=== PATIENT | male | born 2000 | race Caucasian/White ===

== ENCOUNTER 2023-11-14 00:28 | Inpatient (IN) | payer OTHER ==
[2023-11-14 01:44] LABS: Amphetamine Screen,Urine Not Detected (NotDetected); Barbiturate Screen,Urine Not Detected (NotDetected); Benzodiazepines Screen,Urine Not Detected (NotDetected); Cocaine Screen,Urine Not Detected (NotDetected); Methadone Screen, Urine Not Detected (NotDetected); Opiate Screen,Urine Not Detected (NotDetected); Oxycodone Screen, Urine Not Detected (NotDetected); Phencyclidine Screen,Urine Not Detected (NotDetected); Tricyclic Antidepressant,Urine Not Detected (NotDetected); Urn Cannabinoid Scrn Detected (NotDetected)
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
[2023-11-14] MEDS ORDERED: MAGNESIUM HYDROXIDE 2,400 MG/30 ML CUP PO PRN (14:13)
[2023-11-14] MEDS ORDERED: MAG HYDROX/AL HYDROX/SIMETH 355 ML BOTTLE PO PRN (14:13)
[2023-11-14] MEDS ORDERED: ACETAMINOPHEN TAB 325 MG TAB PO PRN (14:13)
[2023-11-14] MEDS ORDERED: LORazepam 1 MG TAB PO PRN (14:15)
[2023-11-14] MEDS ORDERED: HALOPERIDOL LACTATE 5 MG/ML 1 ML VIAL IM PRN (14:15)
[2023-11-14] MEDS ORDERED: haloperidoL 5 MG TAB PO PRN (14:15)
[2023-11-14] MEDS ORDERED: LORazepam 2 MG/ML INJ IM PRN (14:15)
[2023-11-14] MEDS ORDERED: BACITRACIN OINT 1 EACH PACKET TOPICAL PRN (14:58)
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
--- NOTE | 2023-11-15 04:44 | P.CONS ---
History of Present Illness - Reason for Consult Consult date: 11/15/23 - History of Present Illness The patient is a 22-year-old male with no known PMH but presented to the emergency room with complaints of " not being in the right mental space". the patient was admitted to the mental health unit where he was seen and evaluated. He reports struggling with his mental health due to his childhood. He did not wish to delve into any further details. He denied any physical complaints at the time of interview. Denied experiencing chest discomfort, shortness of breath, fever, chills, cough, nausea, vomiting, abdominal pain, diarrhea. He denies tobacco, or alcohol use. Does report recreational marijuana use. Review of systems: Pertinent positives and negatives as discussed in HPI, a complete review of systems was performed and all other systems are negative. Physical examination: General: non toxic, no distress, appears at stated age, normal weight Derm: no unusual rashes/lesions, no unusual ecchymoses, warm, dry Head: atraumatic, normocephalic, symmetric Eyes: EOMI, no lid lag, anicteric sclera ENT: Nose and ears atraumatic, no thrush, no pharyngeal erythema Neck: trachea midline, supple Mouth: no lip lesion, mucus membranes moist Cardiovascular: S1S2 reg, no murmur, no edema Lungs: CTA bilateral, no rhonchi, no rales , no accessory muscle use Abdominal: soft, nontender to palpation, no guarding Ext: no gross muscle atrophy, no contractures, Neuro: No gross focal neuro deficits noted Psych: Alert, oriented, appropriate affect Assessment: Marijuana abuse Depression Imaging: None performed Data Review: Urine toxicology positive for marijuana Plan: Advised on the importance of cessation from marijuana use Defer management of depression to the primary psychiatry service Thank you for allowing us to participate in the care of this patient. We will follow peripherally. Do not hesitate to contact us with questions. Someone can be reached from the [facility] hospitalist group at all hours of the day at [phone]. Past Medical History Past Medical History: No Reported History History of Any Multi-Drug Resistant Organisms: None Reported Past Surgical History: No Surgical Hx Reported Past Psychological History: No Psychological Hx Reported Smoking Status: Unknown if ever smoked Past Alcohol Use History: Occasional Past Drug Use History: None Reported - Past Family History Father Family Medical History: Hyperlipidemia Medications and Allergies Home Medications Medication Instructions Recorded Confirmed Type No Known Home Medications 11/14/23 11/14/23 History Allergies Allergy/AdvReac Type Severity Reaction Status Date / Time hydrocodone AdvReac Muscle Verified 11/14/23 09:07 issues Physical Exam Vitals: Vital Signs Temp Pulse Pulse Resp BP BP Pulse Ox 11/14/23 14:31 97.7 F 82 16 125/73 100 11/14/23 14:30 74 12 120/81 99 Intake and Output 11/14/23 11/14/23 11/15/23 14:59 22:59 06:59 Other: Weight 63.531 kg
[2023-11-15 08:53] LABS: Basophils % (A) 1 %; Eosinophils # (A) 0.1 k/uL (0-0.7); Eosinophils % (A) 2 %; HCT 48.4 % (39.0-53.0); HGB 15.9 gm/dL (13.0-17.5); Lymphocytes # (A) 1.9 k/uL (1.0-4.8); Lymphocytes % (A) 30 %; MCH 28.8 pg (25.0-35.0); MCHC 32.9 g/dL (31.0-37.0); MCV 87.5 fL (80.0-100.0); Mean Platelet Volume 7.8; Monocytes # (A) 0.4 k/uL (0-1.0); Monocytes % (A) 6 %; Neutrophils # (A) 3.7 k/uL (1.3-7.7); Neutrophils % (A) 59 %; Platelet Count 259 k/uL (150-450); RBC 5.53 m/uL (4.30-5.90); WBC 6.2 k/uL (3.8-10.6)
[2023-11-15 09:16] LABS: ALT 26 U/L (4-49); AST 31 U/L (17-59); African American GFR (CKD) >90 (>60 ml/min/1.73 sqM); Albumin 4.5 g/dL (3.5-5.0); Alkaline Phosphatase 73 U/L (38-126); Anion Gap 7 mmol/L; Blood Urea Nitrogen 22 mg/dL (9-20); Calcium 9.8 mg/dL (8.4-10.2); Carbon Dioxide 28 mmol/L (22-30); Chloride 104 mmol/L (98-107); Glucose 94 mg/dL (74-99); Non-African American GFR(CKD) >90 (>60 ml/min/1.73 sqM); Sodium 139 mmol/L (137-145); Total Bilirubin 0.9 mg/dL (0.2-1.3)
[2023-11-15] MEDS: NICOTINE 14MG/24HR PATCH TRANSDERM SCH (09:46)
[2023-11-15] MEDS ORDERED: traZODone HCL 50 MG TAB PO PRN (12:07)
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
[2023-11-15] MEDS: SERTRALINE 25 MG TAB PO SCH (12:24)
--- NOTE | 2023-11-16 12:54 | P.PN ---
Progress Note - Text Progress Note Date: 11/16/23 Interval History: Patient was seen in group room and was directable and agreeable to speak with loan underwriter. Discussed the events leading to hospitalization in more detail today. He described that he became very angry and was unable to control his temper. He believes that a factor contributing to it was him working too much. He reports having become very upset at seeing the messages dog had made, reports becoming angry at the dog, and then becoming angry at his sister and stepfather for trying to interfere. He does not feel that he had insight into how angry he was becoming. He reports that he has been feeling depressed and anxious on the inside and has not been sharing it with anybody. He reports having tried therapy when he was a child and is willing to try again in the future. He was encouraged to pursue therapy. Also discussed stop technique with him today and provided the handout. he states that his sister came to visit during visiting hours and that she has forgiven him. He reports that his mood today is "alright ". He rates depression 2-3 out of 10. Patient reports having access to guns but says they are locked away at home. At this time patient denies any suicidal or homicidal ideations, intent or plan. Patient denies any auditory, visual hallucinations and denies any paranoia or delusions. Patient denies any side effects from the medications and has been compliant with meds. He was agreeable to start medications today. Mental Status Exam: General Appearance: Patient appears to be stated age is alert, directable, and cooperative. Patient appears to have fair hygiene and grooming Behavior: Patient is calmly seated without any agitated behavior. poor eye c ontact, withdrawn Speech: Patient's speech is fluent and nonpressured. Mood/Affect: Mood is improving mildly, affect is congruent and constricted. Suicidality/Homicidality: Patient denies having any suicidal or homicidal ideation intent or plan. Perceptions: Patient denies any visual hallucinations and denies any auditory hallucinations. Though content/process: There is no evidence of any delusional thought content and thought process is linear and goal-directed. Memory and concentration: AOX3, grossly intact for the purposes of this session Judgment and insight:impulsive Assessment adjustment disorder with the disturbance of affect and conduct Depressive disorder, unspecified cannabis use disorder nicotine dependance interpersonal family issues and conflicts Plan: -Patient continues to meet criteria for inpatient psychiatric admission for symptom stabilization and safety. Patient has signed adult voluntary form and medication consent and was placed in patient's chart. -Discussed STOPP technique -Medications: Zoloft 25mg qd for mood/anxiety, increase to 50mg Saturday. trazodone 50mg qhs prn for sleep/mood -When necessary Ativan and Haldol for agitation/aggression. -NRT - nicotine patch -SW on board for discharge planning. Encouraged the patient to participate in milieu. SW to assist coordination with family with safekeeping guns/firearms PRIOR to discharge.
[2023-11-17] MEDS: SERTRALINE 50 MG TAB PO SCH (08:32)
--- NOTE | 2023-11-17 11:42 | P.PN ---
Progress Note - Text Progress Note Date: 11/17/23 Interval History: Patient was seen in group room and was directable and agreeable to speak with sports writer. Patient says that his mood has been "okay ". He says he has not been feeling upset or agitated in the past 24 hours. He reports reading the stop technique paperwork that was given to him yesterday. He was encouraged to practice this technique during hospitalization. He reports sleeping well. He endorses fair appetite and says that generally he eats one to 2 meals at home and has been eating all the scheduled meals in the hospital. He says he does wrestling and was encouraged to do physical activity as a method of relieving energy and for mental health. He was agreeable with Zoloft being at the current dose today and discussed with him that it might be changed in the future as well if needed with outpatient provider. Encouraged compliance with medication. Patient has not taken any when necessary medications. At this time patient denies any suicidal or homicidal ideations, intent or plan. Patient denies any auditory, visual hallucinations and denies any paranoia or delusions. Patient denies any side effects from the medications and has been compliant with meds. Mental Status Exam: General Appearance: Patient appears to be stated age is alert, directable, and cooperative. Patient appears to have fair hygiene and grooming Behavior: Patient is calmly seated without any agitated behavior. fair eye contact Speech: Patient's speech is fluent and nonpressured. Mood/Affect: Mood is improving mildly, affect is congruent and constricted. Suicidality/Homicidality: Patient denies having any suicidal or homicidal ideation intent or plan. Perceptions: Patient denies any visual hallucinations and denies any auditory hallucinations. Though content/process: There is no evidence of any delusional thought content and thought process is linear and goal-directed. Memory and concentration: AOX3, grossly intact for the purposes of this session Judgment and insight:impulsive Assessment adjustment disorder with the disturbance of affect and conduct Depressive disorder, unspecified cannabis use disorder nicotine dependance interpersonal family issues and conflicts Plan: -Patient continues to meet criteria for inpatient psychiatric admission for symptom stabilization and safety. Patient has signed adult voluntary form and medication consent and was placed in patient's chart. -Discussed STOPP technique -Medications: Zoloft 50mg daily. trazodone 50mg qhs prn for sleep/mood -When necessary Ativan and Haldol for agitation/aggression. -NRT - nicotine patch -SW on board for discharge planning. Encouraged the patient to participate in milieu. SW - please assist coordination with family with safekeeping GUNS/firearms PRIOR to discharge.
[2023-11-18 06:57] VITALS: RESP 16
[2023-11-18] MEDS ORDERED: hydrOXYzine pamoate 25 MG CAP PO PRN (11:21)
--- NOTE | 2023-11-18 11:32 | P.PN ---
Progress Note - Text Progress Note Date: 11/18/23 Interval History: Patient was seen in group and was directable and agreeable to speak with commercial insurance underwriter in the office. Patient states his weekend went well, and he is feeling a little better. Patient states that he feels that his heart is racing a little bit, and he is feeling a little panicky. Spare Hand reviewed vitals, vitals within normal limits. Patient states he is mildly anxious. Patient states that he is eating and sleeping well. Patient states his sister came and visited over the weekend, and that he has spoke with his mother, and he may be able to return home upon discharge, but it is still unknown. Continues to endorse some depression at this time, was agreeable to have his Zoloft increased. Continues to have fairly poor eye contact. At this time patient denies any suicidal or homicidal ideations, intent or plan. Patient denies any auditory, visual hallucinations and denies any paranoia or delusions. Patient denies any side effects from the medications and has been compliant with meds. He was agreeable to start medications today. Mental Status Exam: General Appearance: Patient appears to be stated age is alert, directable, and cooperative. Patient appears to have fair hygiene and grooming Behavior: Patient is calmly seated without any agitated behavior. poor eye contact, withdrawn Speech: Patient's speech is fluent and nonpressured. Mood/Affect: Mood is improving mildly, affect is congruent and constricted. Suicidality/Homicidality: Patient denies having any suicidal or homicidal ideation intent or plan. Perceptions: Patient denies any visual hallucinations and denies any auditory hallucinations. Guarded Though content/process: There is no evidence of any delusional thought content and thought process is linear and goal-directed. [place] Memory and concentration: AOX3, grossly intact for the purposes of this session Judgment and insight: Improving mildly Assessment adjustment disorder with the disturbance of affect and conduct mood disorder unspecified cannabis use disorder nicotine dependance interpersonal family issues and conflicts Plan: -Patient continues to meet criteria for inpatient psychiatric admission for symptom stabilization and safety. Patient has signed adult voluntary form and medication consent and was placed in patient's chart. -Medications: increase Zoloft 75mg qd for mood/anxiety, trazodone 50mg qhs prn for sleep/mood, add visteral 25mg PO prn for anxiety -When necessary Ativan and Haldol for agitation/aggression. -NRT - nicotine patch -SW on board for discharge planning. Encouraged the patient to participate in milieu. Possible discharge Saturday, if patient continues to improve. mat worker to contact patient's mother to help coordinate patient's discharge planning.
[2023-11-18] MEDS: SERTRALINE 25 MG TAB PO STA (11:47)
[2023-11-19] MEDS: SERTRALINE 25 MG TAB PO SCH (08:16)
--- NOTE | 2023-11-19 11:03 | P.PN ---
Progress Note - Text Progress Note Date: 11/19/23 Interval History: Patient was seen in group and was directable and agreeable to speak with television script writer in the office. Patient states he is feeling all right. He states he feels the medications are starting to work. He claims his anxiety is improved. Patient states that he is eating and sleeping well. Patient is attending groups. Patient states he spoke with his mother last night, and states he still does not know if he is welcome back home. Continues to have fairly poor eye contact, but this is mildly improving. At this time patient denies any suicidal or homicidal ideations, intent or plan. Patient denies any auditory, visual hallucinations and denies any paranoia or delusions. Patient denies any side effects from the medications and has been compliant with meds. Mental Status Exam: General Appearance: Patient appears to be stated age is alert, directable, and cooperative. Patient appears to have fair hygiene and grooming Behavior: Patient is calmly seated without any agitated behavior. poor eye contact, improving Speech: Patient's speech is fluent and nonpressured. Mood/Affect: Mood is improving mildly, affect is congruent and constricted. Suicidality/Homicidality: Patient denies having any suicidal or homicidal ideation intent or plan. Perceptions: Patient denies any visual hallucinations and denies any auditory hallucinations. Guarded, mildly improving Though content/process: There is no evidence of any delusional thought content and thought process is linear and goal-directed. Memory and concentration: AOX3, grossly intact for the purposes of this session Judgment and insight: Improving mildly Assessment adjustment disorder with the disturbance of affect and conduct mood disorder unspecified cannabis use disorder nicotine dependance interpersonal family issues and conflicts Plan: -Patient continues to meet criteria for inpatient psychiatric admission for symptom stabilization and safety. Patient has signed adult voluntary form and medication consent and was placed in patient's chart. -Medications: increase Zoloft 100mg qd for mood/anxiety, trazodone 50mg qhs prn for sleep/mood, visteral 25mg PO prn for anxiety -When necessary Ativan and Haldol for agitation/aggression. -NRT - nicotine patch -SW on board for discharge planning. Encouraged the patient to participate in milieu. Possible discharge Saturday, if patient continues to improve. table worker packager to contact patient's mother to help coordinate patient's discharge planning.
[2023-11-20 07:16] VITALS: BP 118/60; PULSE 83; TEMP 97.9
[2023-11-20] MEDS: SERTRALINE 100 MG TAB PO SCH (08:20)
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
== END 2023-11-20 14:11 | disposition home or self-care (01) | DRG 882 ==
LOC: EC 00:28 → 3MHU 14:11
PROVIDERS: ADMIT Psychiatry & Neurology Psychiatry; ATTEND Psychiatry & Neurology Psychiatry
DX: F43.25 Adjustment disorder with mixed disturbance of emotions and conduct (principal); R45.851 Suicidal ideations; F32.A Depression, unspecified; F12.10 Cannabis abuse, uncomplicated; Z11.52 Encounter for screening for COVID-19; F41.9 Anxiety disorder, unspecified; Z28.310 Unvaccinated for COVID-19; Z71.51 Drug abuse counseling and surveillance of drug abuser; Y04.0XXA Assault by unarmed brawl or fight, initial encounter; Z88.5 Allergy status to narcotic agent
CPT/HCPCS: 80053; 80306; 82075; 83036; 84443; 85025; 87636; 99291

== ENCOUNTER 2024-02-10 01:24 | Inpatient (IN) | payer OTHER ==
--- NOTE | 2024-02-10 01:58 | ED ---
General Adult HPI - General Source: patient, RN notes reviewed <Darren Cao - Last Filed: 02/10/24 02:00> - General Source: RN notes reviewed, old records reviewed - History of Present Illness -: days(s) Radiation: non-radiation Severity scale (1-10): 4 Consistency: constant Improves with: none Worsens with: none Associated Symptoms: denies other symptoms Treatments Prior to Arrival: none <[facility] - Last Filed: 02/21/24 22:24> - General Stated complaint: Mental health Time Seen by Provider: 02/10/24 01:52 - History of Present Illness Initial comments: Quicknote 23-year-old male presenting to the ED with chief complaint of suicidal ideation. Denies homicidal ideation. Reports no current plan, just notes thoughts of suicide. Denies chest pain, shortness of breath, fever, chills, abdominal pain, nausea, changes in bowel or bladder habits. (Darren Cao) This is a 23-year-old male to the ER for evaluation of suicidal thoughts with significant persistent recurrent suicidal thoughts and suicidal ideation no recent drugs or alcohol with marijuana ([facility]) - Related Data Previous Rx's Medication Instructions Recorded Sertraline [Zoloft] 150 mg PO DAILY 30 Days #90 tab 02/14/24 Allergies Allergy/AdvReac Type Severity Reaction Status Date / Time hydrocodone AdvReac Muscle Verified 02/10/24 10:16 issues Review of Systems ROS Other: All systems not noted in ROS Statement are negative. <Darren Cao - Last Filed: 02/10/24 02:00> ROS Other: All systems not noted in ROS Statement are negative. <[facility] - Last Filed: 02/21/24 22:24> ROS Statement: Those systems with pertinent positive or pertinent negative responses have been documented in the HPI. Past Medical History Past Medical History: No Reported History History of Any Multi-Drug Resistant Organisms: None Reported Past Surgical History: No Surgical Hx Reported Past Psychological History: No Psychological Hx Reported Smoking Status: Unknown if ever smoked Past Alcohol Use History: Occasional Past Drug Use History: None Reported - Past Family History Father Family Medical History: Hyperlipidemia <Darren Cao - Last Filed: 02/10/24 02:00> General Exam <KileyDarren - Last Filed: 02/10/24 02:00> General appearance: alert, in no apparent distress Head exam: Present: atraumatic, normocephalic, normal inspection Eye exam: Present: normal appearance, PERRL, EOMI. Absent: scleral icterus, conjunctival injection, periorbital swelling ENT exam: Present: normal exam, mucous membranes moist Neck exam: Present: normal inspection. Absent: tenderness, meningismus, lymphadenopathy Respiratory exam: Present: normal lung sounds bilaterally. Absent: respiratory distress, wheezes, rales, rhonchi, stridor Cardiovascular Exam: Present: regular rate, normal rhythm, normal heart sounds. Absent: systolic murmur, diastolic murmur, rubs, gallop, clicks GI/Abdominal exam: Present: soft, normal bowel sounds. Absent: distended, tende rness, guarding, rebound, rigid Extremities exam: Present: normal inspection, full ROM, normal capillary refill. Absent: tenderness, pedal edema, joint swelling, calf tenderness Back exam: Present: normal inspection Neurological exam: Present: alert, oriented X3, CN II-XII intact Psychiatric exam: Present: normal affect, normal mood Skin exam: Present: warm, dry, intact, normal color. Absent: rash <[facility] - Last Filed: 02/21/24 22:24> - General Exam Comments Initial Comments: Visual Physical Exam Vital signs reviewed General: Well-appearing, nontoxic, no acute distress. Head: Normocephalic, atraumatic Eyes: PERRLA, EOMI ENT: Airway patent Chest: Nonlabored breathing Skin: No visual rash, normal skin tone Neuro: Alert and oriented 3 Musculoskeletal: No gross abnormalities (Darren Cao) Course <[facility] - Last Filed: 02/21/24 22:24> Vital Signs 02/10/24 02/10/24 02:26 12:47 Temperature 98.0 F 98.1 F Pulse Rate 76 71 Respiratory 18 16 Rate Blood Pressure 117/69 146/65 O2 Sat by Pulse 100 96 Oximetry - Reevaluation(s) Reevaluation #1: 02/10/24 04:48 Records are reviewed ([facility]) Reevaluation #2: 02/10/24 04:48 Medically cleared for psychiatric evaluation ([facility]) Reevaluation #3: Was pt. sent in by a medical professional or institution (RISSA Stone, SYSTEM ADMINISTRATION MANAGER, urgent care, hospital, or custodial...) When possible be specific @ -no Did you speak to anyone other than the patient for history (EMS, parent, family, police, friend...)? What history was obtained from this source @ -no Did you review nursing and triage notes (agree or disagree)? Why? @ -agree Are old charts reviewed (outside hosp., previous admission, EMS record, old EKG, old radiological studies, urgent care reports/EKG's, custodial records)? Report findings @ -yes Differential Diagnosis (chest pain, altered mental status, abdominal pain women, abdominal pain men, vaginal bleeding, weakness, fever, dyspnea, syncope, headache, dizziness, GI bleed, back pain, seizure, CVA, palpatations, mental health, musculoskeletal)? @ -prior EKG interpreted by me (3pts min.). @ -no X-rays interpreted by me (1pt min.). @ -no CT interpreted by me (1pt min.). @ -no U/S interpreted by me (1pt. min.). @ -no What testing was considered but not performed or refused? (CT, X-rays, U/S, labs)? Why? @ -none What meds were considered but not given or refused? Why? @ -none Did you discuss the management of the patient with other professionals (professionals i.e. RISSA Stone, SYSTEM ADMINISTRATION MANAGER, lab, RT, psych nurse, social media campaign manager, aegis console operator track, teacher, nursing officer, rn case management)? Give summary @ -no Was smoking cessation discussed for >3mins.? @ -no Was critical care preformed (if so, how long)? @ -no Were there social determinants of health that impacted care today? How? (Homelessness, low income, unemployed, alcoholism, drug addiction, transportation, low edu. Level, literacy, decrease access to med. care, snf, rehab)? @ -none Was there de-escalation of care discussed even if they declined (Discuss DNR or withdrawal of care, Hospice)? DNR status @ -no What co-morbidities impacted this encounter? (DM, HTN, Smoking, COPD, CAD, Cancer, CVA, ARF, Chemo, Hep., AIDS, mental health diagnosis, sleep apnea, morbid obesity)? @ -none Was patient admitted / discharged? Hospital course, mention meds given and route, prescriptions, significant lab abnormalities, going to OR and other pertinent info. @ - 23 male be admitted for mental health evaluation and treatment Admitted Undiagnosed new problem with uncertain prognosis? @ -no Drug Therapy requiring intensive monitoring for toxicity (Heparin, Nitro, Insulin, Cardizem)? @ -no Were any procedures done? @ -no Diagnosis/symptom? @ -Mental health mood disorder Acute, or Chronic, or Acute on Chronic? @ -Acute Uncomplicated (without systemic symptoms) or Complicated (systemic symptoms)? @ -Complicated Side effects of treatment? @ -no Exacerbation, Progression, or Severe Exacerbation? @ -exacerbation Poses a threat to life or bodily function? How? (Chest pain, [place], [place], pneumonia, PE, COPD, DKA, ARF, appy, cholecystitis, CVA, Diverticulitis, Homicidal, Suicidal, threat to staff... and all critical care pts) @ -yes mental health ([facility]) Reevaluation #4: Differential Mental Health Depression, anxiety, bipolar, psychosis, schizophrenia, borderline personality, situational depression, adjustment disorder, behavioral disorder, brain tumor, malingering, substance abuse, encephalopathy, medication reaction, dementia, hypothyroidism, degenerative neurologic disorder, lupus.... This is not meant to be all-inclusive list ([facility]) Medical Decision Making <Darren Cao - Last Filed: 02/10/24 02:00> - Lab Data Result diagrams: 02/11/24 09:15 02/11/24 09:15 <[facility] - Last Filed: 02/21/24 22:24> - Medical Decision Making Quicknote portion performed. Signed Darren Cao PA-C (Darren Cao) 23 male be admitted for mental health evaluation and treatment ([facility]) - Lab Data Lab Results 02/10/24 02/10/24 Range/Units 02:33 12:35 Urine Opiates Screen Not Detected (NotDetected) Ur Oxycodone Screen Not Detected (NotDetected) Urine Methadone Screen Not Detected (NotDetected) Ur Barbiturates Screen Not Detected (NotDetected) U Tricyclic Antidepress Not Detected (NotDetected) Ur Phencyclidine Scrn Not Detected (NotDetected) Ur Amphetamines Screen Not Detected (NotDetected) U Methamphetamines Scrn Not Detected (NotDetected) U Benzodiazepines Scrn Not Detected (NotDetected) Urine Cocaine Screen Not Detected (NotDetected) U Marijuana (THC) Screen Detected H (NotDetected) SARS-CoV-2 (PCR) Not Detected (Not Detectd) Disposition <Darren Cao - Last Filed: 02/10/24 02:00> Is patient prescribed a controlled substance at d/c from ED?: No <[facility] - Last Filed: 02/21/24 22:24> Clinical Impression: Adjustment disorder with mixed disturbance of emotions and conduct, Unspecified episodic mood disorder Disposition: TRANSFER TO PSYCH HOSP/UNIT Condition: Stable
[2024-02-10 03:03] LABS: Amphetamine Screen,Urine Not Detected (NotDetected); Barbiturate Screen,Urine Not Detected (NotDetected); Benzodiazepines Screen,Urine Not Detected (NotDetected); Cocaine Screen,Urine Not Detected (NotDetected); Methadone Screen, Urine Not Detected (NotDetected); Opiate Screen,Urine Not Detected (NotDetected); Oxycodone Screen, Urine Not Detected (NotDetected); Phencyclidine Screen,Urine Not Detected (NotDetected); Tricyclic Antidepressant,Urine Not Detected (NotDetected); Urn Cannabinoid Scrn Detected (NotDetected)
[2024-02-10] MEDS ORDERED: MAG HYDROX/AL HYDROX/SIMETH 355 ML BOTTLE PO PRN (15:01)
[2024-02-10] MEDS ORDERED: ACETAMINOPHEN TAB 325 MG TAB PO PRN (15:01)
[2024-02-10] MEDS ORDERED: LORazepam 1 MG TAB PO PRN (15:01)
[2024-02-10] MEDS ORDERED: IBUPROFEN 600 MG TAB PO PRN (15:01)
[2024-02-10] MEDS ORDERED: HALOPERIDOL LACTATE 5 MG/ML 1 ML VIAL IM PRN (15:01)
[2024-02-10] MEDS ORDERED: haloperidoL 5 MG TAB PO PRN (15:01)
[2024-02-10] MEDS ORDERED: LORazepam 2 MG/ML INJ IM PRN (15:01)
[2024-02-10] MEDS ORDERED: traZODone HCL 50 MG TAB PO PRN (15:01)
[2024-02-10] MEDS ORDERED: MAGNESIUM HYDROXIDE 2,400 MG/30 ML CUP PO PRN (15:01)
--- NOTE | 2024-02-10 16:38 | P.MDCNMH ---
<Tutu Paulson - Last Filed: 02/10/24 16:30> History of Present Illness H&P Date: 02/10/24 History of Presenting Illness: Patient is a 23-year-old male with a past medical history of depression, anxiety, and cannabinoid use. He is currently admitted to mental health unit. He presented to the emergency department with a chief complaint of depression and suicidal ideations. Patient reports he is having a difficult time getting along with his stepfather, states her personalities do not mesh well together. Patient reports this causes him to feel significantly depressed and reports he is having thoughts of killing himself. Patient reports he has thought about taking a knife and just stabbing himself. He reports history of recent hospitalization secondary to same as [place] knifewith the intent to go and end his life. Patient denies nicotine use and reports he only drinks once in a while and denies binge drinking behaviors or daily alcohol use. He is admitted under psychiatry team and we were consulted for medical evaluation and H&P. Patient seen and evaluated on mental health unit. He was initially talking on phone and upon asking to do examination patient was pleasant and cooperative and explained to the person on the phone he was going to get examination and call them back. Patient was ambulatory with a steady gait. He was alert and oriented x 4 denies having any visual, auditory, or tactile hallucinations. Patient does report feeling depressed with active suicidal ideations and a plan. He denies having homicidal ideations. He states he does not want to kill himself because it would hurt his sister and his mother, but also reports he does not know what else to do because he cannot get along with his stepfather. Patient does admit to daily cannabis use but denies any other drug use. Patient denies complaints including headache, lightheadedness, dizziness, chest pain, palpitations, shortness of breath, cough or congestion, nausea, or vomiting. Review of systems: Pertinent positives and negatives as discussed in HPI, a complete review of systems was performed and all other systems are negative. Physical exam: Vital signs reviewed and stable. General: Nontoxic, no distress and appears stated age. Derm: Skin warm and dry, normal coloration for ethnicity. Head: Atraumatic, normocephalic and symmetric. Eyes: EOMs intact, no lid lag, and anicteric sclera Mouth: no lip lesions, mucus membranes moist Cardiovascular: regular rate and rhythm with normal S1S2, no murmur, positive posterior tibial pulses bilaterally, and cap refill < 2 seconds. Lungs: Respirations even, regular, and unlabored on room air. Lungs CTA bilaterally, no rhonchi, no rales, no wheezing, and no accessory muscle usage. Abdominal: soft, nontender to palpation, no guarding, no appreciable organomegaly Ext: ROM intact. No gross muscle atrophy, no edema, no contractures Neuro: Speech clear, face symmetrical and CN II-XII grossly intact with no noted focal neuro deficits Psych: Alert and oriented to person, place, time, and situation. Appropriate and pleasant affect. Assessment and Plan of Care: Cannabinoid use disorder -Recommend cessation of use. Depression Suicidal ideations with a plan -Maintain safe and supportive care, suicide precautions to being placed. -Management per primary admitting psychiatry team. Popeye reviewed: -Urine drug screen positive for marijuana only. -COVID PCR negative. -Vital signs reviewed. Blood pressure 146/65, heart rate 71, respiratory rate 16, temp 98.1 F, and SpO2 of 96% on room air. Thank you for allowing us to participate in the care of this pleasant patient. Do not hesitate to contact us with questions. Someone can be reached from the [facility] hospitalist group all hours of the day at [phone] or via perfect serve. Patient was seen independently by Nurse Practitioner. This document was prepared using [employer] dictation software. Please allow for errors in statistics teacher while rare they do occur. Past Medical History Past Medical History: No Reported History History of Any Multi-Drug Resistant Organisms: None Reported Past Surgical History: No Surgical Hx Reported Past Psychological History: No Psychological Hx Reported Smoking Status: Never smoker Past Alcohol Use History: Occasional Past Drug Use History: Marijuana - Past Family History Father Family Medical History: Hyperlipidemia Medications and Allergies Home Medications Medication Instructions Recorded Confirmed Type Sertraline [Zoloft] 150 mg PO DAILY 02/10/24 02/10/24 History Allergies Allergy/AdvReac Type Severity Reaction Status Date / Time hydrocodone AdvReac Muscle Verified 02/10/24 10:16 issues Physical Exam Vitals: Vital Signs Temp Pulse Resp BP Pulse Ox 02/10/24 12:47 98.1 F 71 16 146/65 96 02/10/24 02:26 98.0 F 76 18 117/69 100 Intake and Output 02/10/24 02/10/24 02/10/24 06:59 14:59 22:59 Other: Weight 65.771 kg Cranial Nerve Examination - Cranial Nerves Cranial Nerve II- Optic: Intact Cranial Nerve III- Oculomotor: Intact Cranial Nerve IV- Trochlear: Intact Cranial Nerve V- Trigeminal: Intact Cranial Nerve - Abducens: Intact Cranial Nerve VII- Facial: Intact Cranial Nerve VIII- Auditory: Intact Cranial Nerve IX- Glossopharyngeal: Intact Cranial Nerve X- Vagus: Intact Cranial Nerve XI- Accessory: Intact Cranial Nerve XII- Hypoglossal: Intact Results Labs: Abnormal Lab Results - Last 24 Hours (Table) 02/10/24 Range/Units 02:33 U Marijuana (THC) Screen Detected H (NotDetected) <Hayden Whitaker - Last Filed: 02/10/24 18:20> History of Present Illness Tutu Paulson NP rendered care for this patient independently, reviewed the findings and plan as documented in the note above. I did not physically speak with or examine the patient on this date. Physical Exam Vitals: Vital Signs Temp Pulse Resp BP Pulse Ox 02/10/24 12:47 98.1 F 71 16 146/65 96 02/10/24 02:26 98.0 F 76 18 117/69 100 Intake and Output 02/10/24 02/10/24 02/10/24 06:59 14:59 22:59 Other: Weight 65.771 kg Results Labs: Abnormal Lab Results - Last 24 Hours (Table) 02/10/24 Range/Units 02:33 U Marijuana (THC) Screen Detected H (NotDetected)
[2024-02-10] MEDS: NICOTINE 14MG/24HR PATCH TRANSDERM SCH (17:32)
[2024-02-11] MEDS: SERTRALINE 50 MG TAB PO SCH (08:21)
[2024-02-11 10:07] LABS: Basophils % (A) 0 %; Eosinophils # (A) 0.1 k/uL (0-0.7); Eosinophils % (A) 1 %; HCT 47.4 % (39.0-53.0); Lymphocytes # (A) 1.7 k/uL (1.0-4.8); Lymphocytes % (A) 29 %; MCH 28.8 pg (25.0-35.0); MCHC 31.6 g/dL (31.0-37.0); MCV 91.3 fL (80.0-100.0); Mean Platelet Volume 7.8; Monocytes # (A) 0.3 k/uL (0-1.0); Monocytes % (A) 5 %; Neutrophils # (A) 3.7 k/uL (1.3-7.7); Neutrophils % (A) 63 %; Platelet Count 247 k/uL (150-450); RBC 5.19 m/uL (4.30-5.90); RDW 12.6 % (11.5-15.5); WBC 5.9 k/uL (3.8-10.6)
[2024-02-11 10:14] LABS: ALT 30 U/L (4-49); AST 37 U/L (17-59); African American GFR (CKD) >90 (>60 ml/min/1.73 sqM); Albumin 4.7 g/dL (3.5-5.0); Alkaline Phosphatase 82 U/L (38-126); Anion Gap 5 mmol/L; Blood Urea Nitrogen 15 mg/dL (9-20); Calcium 9.9 mg/dL (8.4-10.2); Carbon Dioxide 29 mmol/L (22-30); Chloride 105 mmol/L (98-107); Glucose 101 mg/dL (74-99); Non-African American GFR(CKD) >90 (>60 ml/min/1.73 sqM); Potassium 4.6 mmol/L (3.5-5.1); Sodium 139 mmol/L (137-145); Total Bilirubin 0.7 mg/dL (0.2-1.3); Total Protein 7.1 g/dL (6.3-8.2)
--- NOTE | 2024-02-11 13:43 | P.HP ---
Psychiatric H&P - . H&P Date: 02/11/24 History & Physical: Allergies Allergy/AdvReac Type Severity Reaction Status Date / Time hydrocodone AdvReac Muscle Verified 02/10/24 10:16 issues Vital Signs Temp 97.8 F 02/11/24 06:41 Pulse 72 02/11/24 06:41 Resp 14 02/11/24 06:41 BP 104/62 02/11/24 06:41 Pulse Ox 99 02/11/24 06:41 FiO2 Intake & Output 02/10/24 02/11/24 02/11/24 18:59 06:59 18:59 Weight 67.358 kg Laboratory Last Values Urine Opiates Screen Not Detected (NotDetected) 02/10/24 02:33 Ur Oxycodone Screen Not Detected (NotDetected) 02/10/24 02:33 Urine Methadone Screen Not Detected (NotDetected) 02/10/24 02:33 Ur Barbiturates Screen Not Detected (NotDetected) 02/10/24 02:33 U Tricyclic Antidepress Not Detected (NotDetected) 02/10/24 02:33 Ur Phencyclidine Scrn Not Detected (NotDetected) 02/10/24 02:33 Ur Amphetamines Screen Not Detected (NotDetected) 02/10/24 02:33 U Methamphetamines Scrn Not Detected (NotDetected) 02/10/24 02:33 U Benzodiazepines Scrn Not Detected (NotDetected) 02/10/24 02:33 Urine Cocaine Screen Not Detected (NotDetected) 02/10/24 02:33 U Marijuana (THC) Screen Detected (NotDetected) H 02/10/24 02:33 SARS-CoV-2 (PCR) Not Detected (Not Detectd) 02/10/24 12:35 02/11/24 09:10 IDENTIFYING DATA: Patient is a 23 year old male. Lives with mom, stepdad, and sister. 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 Single, no children. HPI: Patient presented to the hospital on 02/09. As per EPS note, "Patient brought to ED via EMS after an argument with his stepfather. patient states that the police were called and they encouraged patient to come in for evaluation. No petition. patient very vague about the incident that led up to him arriving in the ED. Patient states "I just kind of blew up. My sister and stepdad were talking, oh fuck I dont even want to talk about this bullshit". Patient states "my mom asked whats going on. Me and Rigoberto just cant get along. he can yell at me and Ill try to do my best. I just cant satisfy the freddie. I was calling him names and stuff- I was really ticked off." "I just had enough. I pushed her(mom) out of the way and went to the kitchen, grabbed the knife and said fuck it. My life is always going to be fucked up. I cant win at life. I went for a walk with the knife and my sister called and picked me up. I calmed down a little bit after that". When asked if he made suicidal statements during the argument, patient did not answer and shrugged his shoulders. Poor eye contact. With patient's permission this service writer contacted patient's mother, Princess Lopez. Mother states all patient does is go to work and come home and play video games. Mother states that the last couple months have been "down hill" for Ayan. Mother reports that she is at her "wits end" with him and he is not allowed back into the home. She can not confirm or deny any suicidal statements were made last night as it "all happened so quickly." She states her said " 'fine get out' to Ayan and he grabbed a knife and walked out." Today, the patient states that the family got into an argument, and it escalated. He states he blew up at his step dad, calling him names. He states he keeps trying to have a better relationship, but it is not working out. He states that his mother came up with a bunch of rules for him and his sister. He claims his step dad does not treat him fairly. He states he ran past his mom and grabbed a knife, and went for a walk, and would not answer his phone. He called his sister, who met up with him. They talked, and he came to the conclusion that he needs to move out of the house. Patient has poor impulse control. He states his mood right now is fine, and he is not endorsing any depression or anxiety at this time. States he is sleeping fine, and his appetite is good. Patient denies any suicidal or homicidal ideations intent or plan. At this time patient denies any auditory or visual hallucinations. Patient denies any flight of ideas racing thoughts and increased in goal directed behavior. Patient admits to using marijuana. Only socially drinks, non smoker. PAST PSYCHIATRIC HISTORY: Patient states that he was last inpatient on this U the end of October, this year. Was discharged on Zoloft 100mg. He does follow up with [facility] in [place]. Patient denies suicide attempts in the past PMH:As per ER note ALLERGIES: as per EMR CHEMICAL DEPENDENCY HISTORY: as per HPI FAMILY PSYCHIATRIC/SUBSTANCE USE HISTORY: mom has depression/ brother has schizophrenia SOCIAL HISTORY: Patient was born and raised in [place], [place], high school grad. Lives with his parents and sister in a house. Works at [employer]. Single, no children. Denies legal problems. MENTAL STATUS EXAM: General Appearance: Patient appears to be stated age is alert, directable, and attempts to cooperate. Patient appears to have fair hygiene and grooming. Dressed casually, has a darden. Behavior: Patient is seated without any agitated behavior. Speech: Patient's speech is fluent and nonpressured. Mood/Affect: Patient reports their mood is fine, affect is congruent and constricted. Suicidality/Homicidality: Patient denies having any homicidal ideation intent or plan. Denies any suicidal ideations intent or plan Perceptions: Patient denies any visual hallucinations and denies any auditory hallucinations Though content/process: There is no evidence of any delusional thought content and thought process is linear and goal-directed. Evasive. Memory and concentration: AOX3, grossly intact for the purposes of this session. Can spell "WORLD" backwards Judgment and insight: poor/impulsive STRENGTHS/WEAKNESSES: strength is that patient is resilient. Weakness is that patient has poor judgment and is impulsive INTELLECT: average IMPRESSIONS: adjustment disorder with the disturbance of affect and conduct depressive disorder cannabis use disorder interpersonal family issues and conflicts PLAN: -Patient is admitted under voluntary status to [facility]HU for stabilization of psychiatric symptoms and safety. Patient has signed adult voluntary form and medication consent] and is placed in patient's chart. -Medications : Will start patient on Zoloft 150mg daily for depression/anxiety, trazodone 50mg qhs prn -Ativan and Haldol PRN for agitation/aggression -Patient was counselled on substance abuse and desired to cut back on use -Patient was informed of the risks, benefits and side effects of the medication and patient verbally consented to taking the medications. -Internal Medicine consult to perform medical evaluation and physical -NRT - nicotine patch -SW on board for discharge planning. Encourage patient to participate in groups to work on coping skills. likely discharge on saturday if patient is improving. 02/11/24 12:26 02/11/24 13:41
[2024-02-11 15:34] LABS: Chol/HDL Ratio 2.56 Ratio; LDL Cholesterol,Calculated 83.4 mg/dL (0.0-131.0)
--- NOTE | 2024-02-12 10:19 | P.PN ---
Progress Note - Text Progress Note Date: 02/12/24 Interval History: Patient was seen in group today doing a puzzle, and was directable and agreeable to speak with repairer typewriter in the office. Patient states that he is doing pretty good today. eye contact still poor. He claims to have slept well last night. He is denying anxiety and depression. He states that he spoke to his sister on the phone, and is seeing his friend for visiting [employer]. His sister seems to be a good support system for him, and is going to help him find a car and a place to stay when he is discharged. He is going to groups, and participating in them. He claims his appetite is good. Patient offered no complaints. At this time patient denies any suicidal or homicidal ideations, intent or plan. Patient denies any auditory, visual hallucinations and denies any paranoia or delusions. Patient denies any side effects from the medications and has been compliant with meds. MENTAL STATUS EXAM: General Appearance: Patient appears to be stated age is alert, directable, and attempts to cooperate. Patient appears to have fair hygiene and grooming. Dressed casually, has a darden. Behavior: Patient is seated without any agitated behavior. eye contact poor. Speech: Patient's speech is fluent and nonpressured. Mood/Affect: Patient reports their mood is fine, affect is congruent and constricted. Suicidality/Homicidality: Patient denies having any homicidal ideation intent or plan. Denies any suicidal ideations intent or plan Perceptions: Patient denies any visual hallucinations and denies any auditory hallucinations Though content/process: There is no evidence of any delusional thought content and thought process is linear and goal-directed. Memory and concentration: AOX3, grossly intact for the purposes of this session. 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 Patient has signed adult voluntary form and medication consent and is placed in patient's chart. -Medications : Zoloft 150mg daily for depression/anxiety, trazodone 50mg qhs prn -Ativan and Haldol PRN for agitation/aggression -NRT - nicotine patch -SW on board for discharge planning. Encourage patient to participate in groups to work on coping skills. likely discharge on saturday if patient is improving.
--- NOTE | 2024-02-13 11:11 | P.PN ---
Progress Note - Text Progress Note Date: 02/13/24 Interval History: Patient was seen in group today doing a puzzle, and was directable and agreeable to speak with video games storywriter in the office. Patient states that he is doing pretty good today. He has improving eye contact. He claims to have slept well last night. He is denying anxiety and depression. Hygiene and grooming improving. He is going to groups, and participating in them. He claims his appetite is good. Patient offered no complaints. He claims that he is going to stay with a previous co worker upon discharge, that is close to his job. At this time patient denies any suicidal or homicidal ideations, intent or plan. Patient denies any auditory, visual hallucinations and denies any paranoia or delusions. Patient denies any side effects from the medications and has been compliant with meds. MENTAL STATUS EXAM: General Appearance: Patient appears to be stated age is alert, directable, and attempts to cooperate. Patient appears to have good hygiene and grooming. Dressed casually, has a darden. Behavior: Patient is seated without any agitated behavior. eye contact improving. Speech: Patient's speech is fluent and nonpressured. Mood/Affect: Patient reports their mood is pretty good, affect is congruent and constricted. mildly improving Suicidality/Homicidality: Patient denies having any homicidal ideation intent or plan. Denies any suicidal ideations intent or plan Perceptions: Patient denies any visual hallucinations and denies any auditory hallucinations Though content/process: There is no evidence of any delusional thought content and thought process is linear and goal-directed. Appears to be more future oriented today. Memory and concentration: AOX3, grossly intact for the purposes of this session. 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 Patient has signed adult voluntary form and medication consent and is placed in patient's chart. -Medications : Zoloft 150mg daily for depression/anxiety, trazodone 50mg qhs prn -Ativan and Haldol PRN for agitation/aggression -NRT - nicotine patch -SW on board for discharge planning. Encourage patient to participate in groups to work on coping skills. likely discharge tomorrow if patient is improving. Patient will be trying to establish a plan now where he will be going upon discharge, which friend he will stay with, he will be doing this today.
[2024-02-14 06:16] VITALS: BP 95/55; PULSE 67; RESP 17; TEMP 97.3
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
== END 2024-02-14 12:38 | disposition home or self-care (01) | DRG 882 ==
LOC: EC 01:24 → 3MHU 14:52
PROVIDERS: ADMIT Psychiatry & Neurology Psychiatry; ATTEND Psychiatry & Neurology Psychiatry
DX: F43.25 Adjustment disorder with mixed disturbance of emotions and conduct (principal); R45.851 Suicidal ideations; F32.A Depression, unspecified; F12.10 Cannabis abuse, uncomplicated; Z11.52 Encounter for screening for COVID-19; F41.9 Anxiety disorder, unspecified; Z79.899 Other long term (current) drug therapy; Z87.891 Personal history of nicotine dependence; Z88.5 Allergy status to narcotic agent
CPT/HCPCS: 80053; 80061; 80306; 82075; 83036; 84443; 85025; 87635; 99285